=== PATIENT | male | born 1980 | race Caucasian/White ===

== ENCOUNTER 2023-07-19 14:55 | Outpatient (CLI) | payer OTHER, SELFPAY ==
--- NOTE | 2023-07-19 15:00 | ECG_ITS ---
Measurements Intervals Naylor Rate: 100 P: 44 RI: 127 QRS: -10 QRSD: 106 T: 17 QT: 317 QTc: 409 Interpretive Statements SINUS TACHYCARDIA POSSIBLE LEFT ATRIAL ENLARGEMENT BORDERLINE R WAVE PROGRESSION, ANTERIOR LEADS MINIMAL Q WAVES- HIGH LATERAL LEADS BORDERLINE ECG NO PREVIOUS ECG AVAILABLE FOR COMPARISON Electronically Signed On 07-19-2023 15:23:31 CDT by Blair Whitehead D.O.
[2023-07-19 15:32] LABS: Hematocrit 51.9 % (42.0-52.0); Hemoglobin 17.9 g/dL (14.0-18.0); Mean Corpuscular HGB Conc 34.5 g/dl (32-36); Mean Corpuscular Hemoglobin 32.3 pg (26-34); Mean Corpuscular Volume 93.5 fl (80-100); Mean Platelet Volume 9.2 fl (7.4-10.4); Platelet Count Result 276 k/mm3 (150-375); Red Blood Count 5.55 M/mm3 (4.6-6.20); Red Cell Distribution Width 12.1 % (11.5-14.5); White Blood Count 11.8 K/mm3 (4.5-10.0)
[2023-07-19 15:33] LABS: Appearance Urine Clear (Clear); Bilirubin Urine Negative (Negative); Blood Urine Negative (Negative); Color Urine Yellow (Yellow); Glucose Urine UA Negative (Negative); Ketones Urine Negative (Negative); Leukocyte Esterase Ur Negative LEU/UL (Negative); Nitrate Urine Negative (Negative); Protein Urine Negative (Negative); Specific Grav Ur 1.004 (1.001-1.035); Urobilinogen Urine 0.2 mg/dL (<2.0); pH Urine 6.5 (5.0-9.0)
[2023-07-19 15:37] LABS: Add Urine Microscopic? NO
[2023-07-19 15:42] LABS: Anion Gap 9 mmol/L (8-16); Blood Urea Nitrogen 15 mg/dL (9-20); Calcium 9.5 mg/dL (8.4-10.2); Carbon Dioxide 25 mmol/L (22-30); Chloride 102 mmol/L (98-107); Estimated Glomerular Filt Rate > 60; Glucose 99 mg/dL (65-110); Potassium 4.1 mmol/L (3.4-5.0); Sodium 136 mmol/L (137-145)
[2023-07-19 15:54] LABS: INR 0.9; Prothrombin Time 12.8 Seconds (11.1-14.7)
[2023-07-19 15:55] LABS: Partial Thromboplastin Time 24.9 SECONDS (22.3-36.8)
== END 2023-07-19 14:56 | disposition home or self-care (01) ==
LOC: ANHSURGERY 14:59
PROVIDERS: PCP Internal Medicine; Visit Provider Neurological Surgery
DX: M48.04 Spinal stenosis, thoracic region (principal); G99.2 Myelopathy in diseases classified elsewhere; I10 Essential (primary) hypertension; Z01.818 Encounter for other preprocedural examination
CPT/HCPCS: 36415; 80048; 81003; 85027; 85610; 85730; 93005

== ENCOUNTER 2023-07-30 00:51 | Day surgery (SDC) | payer OTHER, SELFPAY ==
[2023-07-17 11:22] VITALS: BMI 26.3
--- NOTE | 2023-07-17 11:27 | PC.NURSE ---
Report to the Outpatient Waiting Room, entrance under the green pavilion located off [facility], at time 6:00 on date 07/23/23. Planned Procedure Time: 7:30. Time changes happen often and if your time is changed the preop area will call you the afternoon before. - You and your visitor will be asked to self-screen and do not enter if you have any COVID symptoms. - A mask is optional within the hospital at this time. Patients may have clear liquids (water, carbonated beverages, clear teas, apple juice) until 3 hours prior to surgery (4:30) with a maximum of 20 ounces. - No food from midnight until time of surgery Take the following medications with a SIP of water the morning of surgery: PAIN PILL IF NEEDED DO NOT STOP ANY OF YOUR OTHER PRESCRIPTION MEDICATIONS PRIOR TO SURGERY ?EXCEPT THE FOLLOWING Medications to discontinue per physician: VITAMINS/SUPPLEMENTS Date to take last dose: 07/19/23 Please no make-up, nail filipino, hairspray, perfume, deodorant, or body powder the day of surgery. No jewelry (including any body piercings) or valuables the day of surgery, leave them at home. Please take a shower or bath the night before, or the morning of, surgery with an antibacterial soap. Wear comfortable, loose fitting clothing. - Jewelry must be removed prior to entering the operating room. Rings and piercings that are not removed may be cut off. - The hospital will not accept responsibility for valuables. - Please leave all valuables, including medications, at home the day of surgery. If you are going home after surgery, a licensed motor coach bus driver must drive you home. - NO public transportation without another adult if you receive anesthesia. - We recommend that an adult stay with you for 24 hours following discharge. - We also recommend that you do not drive, make important decision, drink alcoholic beverages, or take any drugs that were not prescribed by your health care provider for at least 24 hours after your discharge time. Follow any additional instructions given to you from your surgeon. If you or anyone in your household have experienced Covid symptoms in the past week, please notify your surgeon or the nurse liaison at the phone number below for possible testing. Telephone instructions given to PT - XENIA PERLA and asked if any additional questions and then verbalized understanding. Patient advised to call surgeon office or pre surgery nurse liaison [phone] if any additional questions.
--- NOTE | 2023-07-17 14:24 | PC.NURSE ---
Report to the Outpatient Waiting Room, entrance under the green pavilion located off [facility], at time 11:00 on date 07/30/23. Planned Procedure Time: 1:00. Time changes happen often and if your time is changed the preop area will call you the afternoon before. - You and your visitor will be asked to self-screen and do not enter if you have any COVID symptoms. - A mask is optional within the hospital at this time. Patients may have clear liquids (water, carbonated beverages, clear teas, apple juice) until 3 hours prior to surgery (10:00) with a maximum of 20 ounces. - No food from midnight until time of surgery Take the following medications with a SIP of water the morning of surgery: PAIN PILL IF NEEDED DO NOT STOP ANY OF YOUR OTHER PRESCRIPTION MEDICATIONS PRIOR TO SURGERY ?EXCEPT THE FOLLOWING Medications to discontinue per physician: VITAMINS/SUPPLEMENTS Date to take last dose: 07/26/23 Please no make-up, nail jordanian, hairspray, perfume, deodorant, or body powder the day of surgery. No jewelry (including any body piercings) or valuables the day of surgery, leave them at home. Please take a shower or bath the night before, or the morning of, surgery with an antibacterial soap. Wear comfortable, loose fitting clothing. - Jewelry must be removed prior to entering the operating room. Rings and piercings that are not removed may be cut off. - The hospital will not accept responsibility for valuables. - Please leave all valuables, including medications, at home the day of surgery. If you are going home after surgery, a licensed courtesy driver must drive you home. - NO public transportation without another adult if you receive anesthesia. - We recommend that an adult stay with you for 24 hours following discharge. - We also recommend that you do not drive, make important decision, drink alcoholic beverages, or take any drugs that were not prescribed by your health care provider for at least 24 hours after your discharge time. Follow any additional instructions given to you from your surgeon. If you or anyone in your household have experienced Covid symptoms in the past week, please notify your surgeon or the nurse liaison at the phone number below for possible testing. Telephone instructions given to PT - XENIA PERLA and asked if any additional questions and then verbalized understanding. Patient advised to call surgeon office or pre surgery nurse liaison [phone] if any additional questions.
[2023-07-30] VITALS (11 sets, daily range): BP systolic 91–127; BP diastolic 69–84; PULSE 88–122; RESP 12–21; TEMP 36.2–36.7; O2SAT 98–100
--- NOTE | ~2023-07-30 | XR_ITS ---
EXAMINATION: XR fluoroscopy no charge DATE: 07/30/2023 12:30 CDT INDICATION: T11-12 HEMILAMINECTOMY . TECHNIQUE: 1 fluoroscopic image of the thoracal lumbar junction was obtained during T11-12 hemilamine ctomy performed by the surgeon. I was not present in the operating room. Fluoroscopy exposure time wa s 3.2 seconds. Air Kerma 0.8830 mGy. DAP 0.0175 mGym2. COMPARISON: None FINDINGS: Skin retractors and the curved tip of a clamp project over the T11 vertebral body. IMPRESSION: Fluoroscopic documentation of T11-12 hemilaminectomy. Please refer to the operative note for complete procedural details . Reviewed, dictated and finalized at location K. IMPRESSION: Fluoroscopic documentation of T11-12 hemilaminectomy. Please refer to the opera tive note for complete procedural details .
--- NOTE | 2023-07-30 12:10 | PM.IMHP ---
H&P: HPI History of Present Illness Date/Time: 07/30/23 12:10 Chief Complaint: Back pain, myelopathy Narrative: Temo is a 42-year-old gentleman who had an injury resulting in a T12 anterior superior endplate compression fracture and angulation resulting in spinal stenosis at T11-12 who presents for decompression at the level by way of right-sided T11-12 hemilaminectomy. He has not changed appreciably since we last saw him. He does not have specific muscle group weakness or dermatomal numbness. He has some sensory issues in his lower extremities. Review of Systems Review of Systems: Patient denies shortness of breath, cough, fever, chills, nausea, vomiting, weight loss, weight gain, chest pain, dysuria. He has back pain and the myelopathic symptoms in his lower extremities as detailed above. His review of systems otherwise negative except as noted elsewhere. [facility] Past Medical History Medical History Arthritis Hypertension Social History Social History Years smoked: 20 Smoking status: Current some day smoker Tobacco type: cigarettes Alcohol intake: current Drinks per week: 25 Alcohol use details: BEER/MIXED DRINKS Substance use: current Substance use type: marijuana Living arrangements: with family Spiritual care concerns: No Meds Home Medications and Allergies Home Medications Medication Instructions Recorded Confirmed Type amlodipine 5 mg tablet 5 mg PO HS 07/06/22 07/30/23 History fluticasone propionate 50 1 spray intranasal DAILY 07/06/22 07/30/23 History mcg/actuation nasal spray,suspension lisinopril 20 1 tablet PO HS 07/06/22 07/30/23 History mg-hydrochlorothiazide 25 mg tablet zolpidem 10 mg tablet 10 mg PO QHS 07/06/22 07/30/23 History diazepam 5 mg tablet 5 mg PO HS 07/17/23 07/30/23 History hydrocodone 5 mg-acetaminophen 325 1 tablet PO Q4H PRN Pain 07/17/23 07/30/23 History mg tablet multivitamin 1 tablet PO HS 07/17/23 07/30/23 History Allergies Allergy/AdvReac Type Severity Reaction Status Date / Time cat dander Allergy Mild Itching Verified 07/30/23 11:43 Vital Signs Vital Signs - 24 hr 07/30/23 11:22 Temperature 98.0 F Pulse Rate 122 H Respiratory Rate 18 Blood Pressure 127/84 Pulse Oximetry 98 Oxygen Delivery Room Air Exam Narrative: Strength is 5/5 in all muscle groups of the bilateral lower extremities. Sensation is intact light touch throughout the lower extremities. Breathing is nonlabored Regular rate and rhythm Assessment and Plan Assessment and plan (1) Myelopathy concurrent with and due to spinal stenosis of thoracic region: Code(s): M48.04 - Spinal stenosis, thoracic region; G99.2 - Myelopathy in diseases classified elsewhere Status: Acute (2) Thoracic compression fracture: Code(s): S22.000A - Wedge compression fracture of unspecified thoracic vertebra, initial encounter for closed fracture Status: Acute Plan Temo is a 42-year-old gentleman with spinal stenosis T11-12 related to an injury resulting in his superior endplate compression fracture at T12. He presents now for right-sided hemilaminectomy at that level for central canal decompression. I described him again that operation, its risks, potential benefits, the operative and postoperative course in detail and answered all his questions personally. He indicates understanding and elects to proceed with that operation.
--- NOTE | 2023-07-30 12:12 | P.PNAN_ITS ---
Anes - Initial Pre Proc Eval Procedure: Operation Date: 07/30/23 12:30 Proposed Procedures p Right T11-12 Hemilaminectomy - Shaun Wilson MD Date/Time: 07/30/23 12:12 Surgeon: Shaun Wilson MD Pre Op Diagnosis: T11-12 stenosis Patient Data Age: 42 Gender: M Height: 1.78 m Weight: 79.7 kg Last Vital Signs Temp 36.7 C 07/30/23 11:22 Pulse 122 H 07/30/23 11:22 Resp 18 07/30/23 11:22 BP 127/84 07/30/23 11:22 Pulse Ox 98 07/30/23 11:22 O2 Del Method Room Air 07/30/23 11:22 Allergies Allergy/AdvReac Type Severity Reaction Status Date / Time cat dander Allergy Mild Itching Verified 07/30/23 11:43 Home Medications Medication Instructions Recorded Confirmed Type amlodipine 5 mg tablet 5 mg PO HS 07/06/22 07/30/23 History fluticasone propionate 50 1 spray intranasal DAILY 07/06/22 07/30/23 History mcg/actuation nasal spray,suspension lisinopril 20 1 tablet PO HS 07/06/22 07/30/23 History mg-hydrochlorothiazide 25 mg tablet zolpidem 10 mg tablet 10 mg PO QHS 07/06/22 07/30/23 History diazepam 5 mg tablet 5 mg PO HS 07/17/23 07/30/23 History hydrocodone 5 mg-acetaminophen 325 1 tablet PO Q4H PRN Pain 07/17/23 07/30/23 History mg tablet multivitamin 1 tablet PO HS 07/17/23 07/30/23 History Patient hx anesthesia problems: none Family hx anesthesia problems: post op nausea/vomiting Results Review: All pre-operative results and documents have been reviewed as part of the pre- operative evaluation. [facility] Past Medical History Medical History Arthritis Hypertension Social History Social History Years smoked: 20 Smoking status: Current some day smoker Tobacco type: cigarettes Alcohol intake: current Drinks per week: 25 Alcohol use details: BEER/MIXED DRINKS Substance use: current Substance use type: marijuana Living arrangements: with family Spiritual care concerns: No Anes - Eval Final PreProcedure Day of Procedure 07/30/23 12:12 Patient weight: normal Heart: regular rate and rhythm Lungs: clear to auscultation Airway: Mallampati scale class II Neurological: alert and oriented Last oral intake: >/= 8 hours ASA classification: III Emergent: no Anesthetic plan: proceed Anesthesia type and monitoring: general ETT and standard monitoring Results Review: All pre-operative results and documents have been reviewed as part of the pre- operative evaluation. Informed Consent: The patient's anesthetic plan and its attendant risks and benefits were discussed with the patient/family/POA. Questions were solicited and answers provided to the satisfaction of the patient/family/POA.
--- NOTE | 2023-07-30 12:12 | WPDHPUPDATE1 ---
History and Physical Update Update Date/Time: 07/30/23 12:12 History and Physical has been reviewed, including an updated exam of the patient. There are NO changes in the patient's condition. Risks, benefits, and alternatives have been discussed and questions answered. Patient agrees to proceed with procedure.
[2023-07-30] MEDS: ceFAZolin 2 GM/D5W 50 ML 2 GM/50 ML BAG IVPB (12:29)
[2023-07-30] MEDS: LIDO 1%/EPINEPHRINE 1:100,000 50 ML VIAL 10 ML INFILTRATE (13:07)
[2023-07-30] MEDS: LACTATED RINGERS 1,000 ML 30 ML IV CONT (14:10)
--- NOTE | 2023-07-30 14:15 | W.PM.PROC2 ---
Procedure Note - Detailed Date of Procedure 07/30/23 Pre-op Diagnosis T11-12 stenosis Post-op Diagnosis Same Procedure Performed Right T11-12 hemilaminectomy Surgeon Shaun Wilson MD [employer] Carolyn Anesthesia General Description of Procedure the patient was brought to the operating room in the supine position, was sedated, intubated and placed under general anesthesia in routine fashion. He was then turned into the prone position on a [place] frame. The over operation on his back was examined, marked for incision, prepped and draped in routine sterile fashion. Incision was marked over the T11 and T12 spinous processes in the midline as confirmed by fluoroscopy. This area was injected with 0.5% lidocaine with 1 to 560992 epinephrine. Intravenous antibiotics given prior to incision. Incision was made with a 10 blade scalpel down to the thoracic fascia. A subperiosteal dissection of the muscle soft tissue away from the spinous process and lamina at T11 and 12 on the right was performed with a subperiosteal elevator and Bovie cautery. A verifying x-rays obtained to verify the level of operation. At the T11 and T12 level of Midas Ignacio drill was used to perform a hemilaminectomy. Was also used under cut the spinous process and lamina. Curved curette was used to define a plane with the dura 1st hips laterally and then contralaterally. Kerrison punches were used to remove overgrown bone and ligament on both sides the canal. The dissection was taken across midline with the bone. A [place] instrument was used to confirm lack of compression which was confirmed. The wound was then copiously irrigated with bacitracin irrigation all bleeding stopped with bipolar and Bovie cautery and Gelfoam thrombin powder. The wound was then closed in layered fashion with 2 0 Vicryl interrupted sutures in the thoracic fascia and scarf is layer. Three 0 Vicryl buried interrupted sutures were placed in the dermis in the skin was closed with a running 4 0 Monocryl subcuticular stitch and dressed with Dermabond. The patient was allowed to wake up in the operating room and was taken to the recovery room in stable condition. There were no immediate complications of this operation. All counts were reported correct in the case. Blood loss was in 25 cc. The patient was neurologically at his baseline postoperatively. CPT codes: 81328, 70855
[2023-07-30] MEDS: fentaNYL CITRATE INJ (*CRX) 100 MCG/2 ML VIAL 25 MCG IV PUSH ×6 (14:38→15:19)
[2023-07-30] MEDS: ONDANSETRON INJ 4 MG/2 ML VIAL IV PUSH (15:46)
[2023-07-30] MEDS: oxyCODONE HCL (*CRX) 5 MG TAB IR PO (16:08)
[2023-07-30] MEDS: SCOPOLAMINE 1.5 MG PATCH TRANSDERM (16:39)
== END 2023-07-30 17:15 | disposition home or self-care (01) ==
PROVIDERS: PCP Internal Medicine; Visit Provider Neurological Surgery
PROC: (CPT 63005; principal; 2023-07-30 12:30)
DX: M48.04 Spinal stenosis, thoracic region (principal); I10 Essential (primary) hypertension; F17.210 Nicotine dependence, cigarettes, uncomplicated; Z87.81 Personal history of (healed) traumatic fracture
CPT/HCPCS: 63046; 36415; 80048; 81003; 85027; 85610; 85730; 93005; 99199; A9270; J0690; J1100; J1170; J2250; J2405; J2704; J3010; J7120

== ENCOUNTER 2023-11-30 07:40 | Outpatient (CLI) | payer OTHER, SELFPAY ==
--- NOTE | ~2023-11-30 | MR_ITS ---
MRI of the lumbar spine Clinical History: Bilateral lower extremity pain Technique: Axial T2-weighted images, and sagittal T1-weighted, T2-weighted, and T2 fat-sat images wer e acquired. Findings: There is no fracture or subluxation of the lumbar spine. Lumbar vertebral bodies maintain n ormal height and alignment. Minimal chronic wedging deformities of T11 and T12 noted. At L1-L2 and L2-L3, L3-L4, there is no disc bulge or herniation. There are moderate facet joint degen erative changes at these levels. No spinal canal stenosis or neural foraminal narrowing at these leve ls. At L4-L5, there is mild disc bulge with moderate facet arthropathy. No central canal stenosis. There is mild to moderate left neural foraminal narrowing, and moderate to advanced right neural foraminal narrowing. At L5-S1, there is minimal disc bulge with moderate facet arthropathy. No central canal stenosis. The re is moderate right neural foraminal narrowing. Left neural foramen preserved. At T11-T12, there is mild retropulsion and disc bulge with severe facet arthropathy, resulting in mod erate canal stenosis and mild compression of the spinal cord this level. There is focal increased cor d signal, suggestive of chronic myomalacia changes at this level. Paravertebral soft tissues are unremarkable. Impression: Moderate canal stenosis and cord compression at T11-T12, with probable chronic myelomalacia changes i n the spinal cord at this level. Mild chronic anterior wedging deformities of T11 and T12. Minimal degenerative spondylosis in the lumbar spine otherwise, as above. Reviewed, dictated and finalized at [facility]. [facility] Impression: Moderate canal stenosis and cord compression at T11-T12, with probable chronic myelomalacia changes in the spinal cord at this level. Mild chronic anterior wedging deformities of T11 and T12. Minimal degenerative spondylosis in the lumbar spine otherwise, as above.
== END 2023-11-30 07:41 ==
LOC: MICIMG 07:42
PROVIDERS: PCP Physician Assistant; Visit Provider Physician Assistant
DX: S22.080A Wedge compression fracture of T11-T12 vertebra, initial encounter for closed fracture (principal); M43.06 Spondylolysis, lumbar region; M48.04 Spinal stenosis, thoracic region; R29.898 Other symptoms and signs involving the musculoskeletal system; X58.XXXA Exposure to other specified factors, initial encounter
CPT/HCPCS: 72148